=== PATIENT | female | born 1975 | race American Indian/Alaskan Native ===

== ENCOUNTER 2019-03-20 17:13 | Emergency (ER) | payer BC ==
--- NOTE | 2019-03-20 19:16 | XRay Report ---
LEFT FOOT 3 VIEW(S) INDICATION / CLINICAL INFORMATION: pain and swelling of the bottom of the foot COMPARISON: None available. FINDINGS: BONES / JOINT(S): No acute fracture or subluxation. No significant arthritis. Small plantar and poste rior calcaneal heel spurs. SOFT TISSUES: No significant abnormality. ADDITIONAL FINDINGS: None. Signer Name: Cass Tucker MD Signed: 03/20/2019 7:11 PM Workstation Name: [id number]
--- NOTE | 2019-03-20 21:28 | Emergency Department Report ---
ED Extremity Problem HPI - General Chief complaint: Pain General Stated complaint: LT FOOT PAIN/LT THUMB PAIN Source: patient Mode of arrival: Ambulatory Limitations: No Limitations - History of Present Illness Initial comments: This pleasant 43-year-old female presented to emergency department chief complaint of left foot pain. Patient reports the pain is at the base of her h eel and is aggravated with movement. She states the pain is usually worse in the morning and will take a few hours before it starts to alleviate throughout the day. Pain has been ongoing for the past 6 months. She denies any injuries. She rates the severity of her pain is a 710 and describes as dull and aching with some throbbing pain. Reports a tightness in her foot in the morning. She denies any known past medical history, current medication use or known allergies to medications. MD Complaint: extremity pain - Related Data Previous Rx's Medication Instructions Recorded Last Taken Type Naproxen 500 mg PO BID #20 tablet 03/20/19 Unknown Rx Allergies Allergy/AdvReac Type Severity Reaction Status Date / Time No Known Allergies Allergy Unverified 03/20/19 17:27 ED Review of Systems ROS: Stated complaint: LT FOOT PAIN/LT THUMB PAIN Other details as noted in HPI Comment: All other systems reviewed and negative Constitutional: denies: chills, fever Eyes: denies: eye pain, eye discharge, vision change ENT: denies: ear pain, throat pain Respiratory: denies: cough, shortness of breath, wheezing Cardiovascular: denies: chest pain, palpitations Endocrine: no symptoms reported Gastrointestinal: denies: abdominal pain, nausea, diarrhea Genitourinary: denies: urgency, dysuria, discharge Musculoskeletal: arthralgia. denies: back pain, joint swelling Skin: denies: rash, lesions Neurological: denies: headache, weakness, paresthesias Psychiatric: denies: anxiety, depression Hematological/Lymphatic: denies: easy bleeding, easy bruising ED Past Medical Hx - Past Medical History Previous Medical History?: No - Surgical History Past Surgical History?: Yes Additional Surgical History: pin in leg. - Social History Smoking Status: Never Smoker Substance Use Type: None - Medications Home Medications: Home Medications Medication Instructions Recorded Confirmed Last Taken Type Naproxen 500 mg PO BID #20 tablet 03/20/19 Unknown Rx ED Physical Exam - General Limitations: No Limitations General appearance: alert, in no apparent distress - Head Head exam: Present: atraumatic, normocephalic - Eye Eye exam: Present: normal appearance - ENT ENT exam: Present: normal exam, mucous membranes moist - Neck Neck exam: Present: normal inspection - Respiratory Respiratory exam: Present: normal lung sounds bilaterally. Absent: respiratory distress - Cardiovascular Cardiovascular Exam: Present: regular rate, normal rhythm. Absent: systolic murmur, diastolic murmur, rubs, gallop - GI/Abdominal GI/Abdominal exam: Present: soft, normal bowel sounds - Extremities Exam Extremities exam: Present: normal inspection, full ROM, tenderness (mild TTP to base of heel. normal ROM. skin is dry and intact. no posterior calf tenderness, negative gopi sign bilaterally ) - Back Exam Back exam: Present: normal inspection - Neurological Exam Neurological exam: Present: alert, oriented X3 - Psychiatric Psychiatric exam: Present: normal affect, normal mood - Skin Skin exam: Present: warm, dry, intact, normal color. Absent: rash ED Course Vital Signs 03/20/19 18:07 Temperature 98.1 F Pulse Rate 72 Respiratory 18 Rate Blood Pressure 127/76 O2 Sat by Pulse 98 Oximetry Critical care attestation.: If time is entered above; I have spent that time in minutes in the direct care of this critically ill patient, excluding procedure time. ED Disposition Clinical Impression: Plantar fasciitis of left foot Heel spur Qualifiers: Laterality: left Qualified Code(s): M77.32 - Calcaneal spur, left foot Disposition: TO HOME OR SELFCARE Is pt being admited?: No Does the pt Need Aspirin: No Condition: Stable Instructions: Plantar Fasciitis (ED) Prescriptions: Naproxen 500 mg PO BID #20 tablet [facility] XIMENA [Primary Care Provider] - 3-5 Days YOVANI MORSE DPM [Staff Physician] - 3-5 Days Time of Disposition: 21:46
[2019-03-20 22:00] VITALS: BP 128/78
== END 2019-03-20 21:55 | disposition home or self-care (01) ==
LOC: ED 17:13
DX: M72.2 Plantar fascial fibromatosis (principal); M77.32 Calcaneal spur, left foot; Z98.890 Other specified postprocedural states; Z79.899 Other long term (current) drug therapy

== ENCOUNTER 2020-07-28 15:32 | Outpatient (CLI) | payer BC ==
--- NOTE | 2020-07-28 16:33 | Mammography Report ---
DIGITAL SCREENING MAMMOGRAM WITH CAD, 07/28/2020 CLINICAL INFORMATION / INDICATION: Routine screening mammography. TECHNIQUE: Digital bilateral 2D mammography was obtained in the craniocaudal and mediolateral obliqu e projections. This examination was interpreted with the benefit of Computer-Aided Detection analysis . COMPARISON: None available. FINDINGS: Breast Density: There are scattered areas of fibroglandular density. No dominant mass, suspicious calcifications, or architectural distortion in either breast. IMPRESSION: No mammographic evidence of malignancy. Follow up recommendation: Routine yearly BI-RADS Category 1: Negative. A "normal" or negative report should not discourage follow up or biopsy of a clinically significant f inding. A written summary of these findings will be mailed to the patient. The patient will be entered into a mammography reporting system which will generate a reminder letter for the patient's next appointmen t at the appropriate interval. The [employer] recommends yearly mammograms starting at age 40 and continuing as l gypsy as a woman is in good health. Breast MRI is recommended for women with an approximate 20-25% or greater lifetime risk of breast cancer, including women with a strong family history of breast or ova jahaira cancer or who have been treated for Hodgkin's disease. Signer Name: Gus Amador MD Signed: 07/28/2020 4:29 PM Workstation Name: [id number]
== END 2020-07-28 15:33 | disposition home or self-care (01) ==
LOC: SPVWC 15:32
PROVIDERS: ATTEND Internal Medicine
DX: Z12.31 Encounter for screening mammogram for malignant neoplasm of breast (principal)
CPT/HCPCS: 77067

== ENCOUNTER 2021-08-03 14:40 | Outpatient (CLI) | payer BC ==
--- NOTE | 2021-08-04 09:37 | Mammography Report ---
DIGITAL SCREENING MAMMOGRAM WITH CAD, 08/03/2021 CLINICAL INFORMATION / INDICATION: Routine screening mammography. SCREENING MAMMO TECHNIQUE: Digital bilateral 2D mammography was obtained in the craniocaudal and mediolateral obliqu e projections. This examination was interpreted with the benefit of Computer-Aided Detection analysis . COMPARISON: 07/28/2020 FINDINGS: Breast Density: There are scattered areas of fibroglandular density. No dominant mass, suspicious calcifications, or architectural distortion in either breast. IMPRESSION: No mammographic evidence of malignancy. Follow up recommendation: Routine yearly BI-RADS Category 1: NEGATIVE A "normal" or negative report should not discourage follow up or biopsy of a clinically significant f inding. A written summary of these findings will be mailed to the patient. The patient will be entered into a mammography reporting system which will generate a reminder letter for the patient's next appointmen t at the appropriate interval. The [employer] recommends yearly mammograms starting at age 40 and continuing as l gypsy as a woman is in good health. Breast MRI is recommended for women with an approximate 20-25% or greater lifetime risk of breast cancer, including women with a strong family history of breast or ova jahaira cancer or who have been treated for Hodgkin's disease. Signer Name: Law Ortiz MD Signed: 08/04/2021 9:33 AM Workstation Name: [id number]
== END 2021-08-03 14:41 | disposition home or self-care (01) ==
LOC: SPVWC 14:40
PROVIDERS: ATTEND Internal Medicine
DX: Z12.31 Encounter for screening mammogram for malignant neoplasm of breast (principal)
CPT/HCPCS: 77067